=== PATIENT | female | born 1945 | race Caucasian/White ===

== ENCOUNTER → 2017-07-03 | Outpatient (CLI) | payer OTHER ==
[2017-07-03 15:54] LABS: Basophils # (auto) 0 uL; Hemoglobin 11.3 g/dL (12.2-16.2); Lymphocytes # (auto) 0.4 uL; Monocytes # (auto) 0.8 uL
[2017-07-03 15:56] LABS: Basophils % (auto) 0.8 % (0.0-2.0); Eosinophils # (auto) 0.1 uL; Eosinophils % (auto) 2.8 % (0.0-7.0); Hematocrit 33.4 % (36.0-46.0); Lymphocytes % (auto) 7.9 % (10.0-50.0); Mean Corpuscular Hemoglobin 34.7 pg (28.0-32.0); Mean Corpuscular Hgb Conc. 33.9 g/dL (32.0-36.0); Mean Corpuscular Volume 102.3 fL (80.0-100.0); Monocytes % (auto) 15.4 % (0.0-12.0); Neutrophils # (auto) 3.6 uL; Neutrophils % (auto) 73.1 % (37.0-80.0); Platelet Count (auto) 274 10^3/uL (140-450); Red Blood Cells 3.26 10^6/uL (4.0-5.20); Red Cell Distribution Width 13.7 % (11.8-14.3); White Blood Cell 4.9 10^3/uL (4.4-10.8)
[2017-07-03 16:15] LABS: Albumin 3.5 g/dL (3.4-5.0); BUN/Creatinine Ratio 15.2; Bilirubin, Total 0.2 mg/dL (0.2-1.0); Calcium 9.3 mg/dL (8.5-10.1); Potassium 3.6 mmol/L (3.5-5.1); Total Protein 7.5 g/dL (6.4-8.2)
== END | disposition home or self-care (01) ==
LOC: EDBD 15:18 → LAB 15:18
PROVIDERS: ATTEND Internal Medicine
DX: C56.9 Malignant neoplasm of unspecified ovary (principal)
CPT/HCPCS: 36415; 80053; 83615; 85025; 86304

== ENCOUNTER → 2017-09-11 | Outpatient (CLI) | payer OTHER ==
[2017-09-11 10:51] LABS: Basophils # (auto) 0 uL; Basophils % (auto) 0.7 % (0.0-2.0); Eosinophils # (auto) 0.1 uL; Eosinophils % (auto) 2.2 % (0.0-7.0); Hematocrit 32.2 % (36.0-46.0); Hemoglobin 10.7 g/dL (12.2-16.2); Lymphocytes # (auto) 0.3 uL; Lymphocytes % (auto) 8.6 % (10.0-50.0); Mean Corpuscular Hemoglobin 32.5 pg (28.0-32.0); Mean Corpuscular Hgb Conc. 33.2 g/dL (32.0-36.0); Mean Corpuscular Volume 97.8 fL (80.0-100.0); Monocytes # (auto) 0.7 uL; Monocytes % (auto) 17.8 % (0.0-12.0); Neutrophils # (auto) 2.7 uL; Neutrophils % (auto) 70.7 % (37.0-80.0); Platelet Count (auto) 232 10^3/uL (140-450); Red Blood Cells 3.29 10^6/uL (4.0-5.20); Red Cell Distribution Width 14.5 % (11.8-14.3); White Blood Cell 3.8 10^3/uL (4.4-10.8)
== END | disposition home or self-care (01) ==
LOC: LAB 10:04
PROVIDERS: ATTEND Internal Medicine
DX: C53.9 Malignant neoplasm of cervix uteri, unspecified (principal)
CPT/HCPCS: 36415; 83615; 85025

== ENCOUNTER → 2017-09-27 | Outpatient (CLI) | payer OTHER ==
[2017-09-27 14:14] LABS: Hematocrit 28.6 % (36.0-46.0); Hemoglobin 9.8 g/dL (12.2-16.2); Mean Corpuscular Hemoglobin 33.4 pg (28.0-32.0); Mean Corpuscular Hgb Conc. 34.1 g/dL (32.0-36.0); Platelet Count (auto) 197 10^3/uL (140-450); Red Blood Cells 2.92 10^6/uL (4.0-5.20); White Blood Cell 2.8 10^3/uL (4.4-10.8)
[2017-09-27 14:23] LABS: Basophils % (manual) 0 (0.0-2.0); Blast Cells 0; Metamyelocytes % 0; Myelocytes % 0; Promyelocytes % 0; Reactive Lymphocytes 0
[2017-09-27 14:52] LABS: Albumin 3.4 g/dL (3.4-5.0); BUN/Creatinine Ratio 17.9; Bilirubin, Total 0.2 mg/dL (0.2-1.0); Calcium 8.9 mg/dL (8.5-10.1); Potassium 3.7 mmol/L (3.5-5.1); Total Protein 7.4 g/dL (6.4-8.2)
[2017-09-27 14:54] LABS: Band Neutrophils % (manual) 1; Eosinophils % (manual) 2 (0-7); Lymphocytes % (manual) 11 (10.0-50.0); Monocytes % (manual) 32 (0-12)
== END | disposition home or self-care (01) ==
LOC: LAB 13:13
PROVIDERS: ATTEND Internal Medicine
DX: C53.9 Malignant neoplasm of cervix uteri, unspecified (principal)
CPT/HCPCS: 36415; 80053; 83615; 85007; 85027; 86304

== ENCOUNTER 2017-10-30 15:33 | Inpatient (IN) | payer OTHER ==
[~2017-10-30] VITALS: Ht 160 cm; Wt 77.0 kg
[2017-10-30] MEDS ORDERED: SODIUM CHLORIDE 0.9% 500 ML IVB ONE (16:06)
[2017-10-30] MEDS ORDERED: ONDANSETRON HCL 4 MG/2 ML VIAL IV ONE ×2 (16:15→22:15)
[2017-10-30 17:01] LABS: Basophils # (auto) 0 uL; Eosinophils # (auto) 0.1 uL; Lymphocytes # (auto) 0.4 uL
[2017-10-30 17:03] LABS: Basophils % (auto) 0.3 % (0.0-2.0); Eosinophils % (auto) 1.1 % (0.0-7.0); Hematocrit 29.5 % (36.0-46.0); Hemoglobin 9.8 g/dL (12.2-16.2); Lymphocytes % (auto) 4.8 % (10.0-50.0); Mean Corpuscular Hemoglobin 34.1 pg (28.0-32.0); Mean Corpuscular Hgb Conc. 33.1 g/dL (32.0-36.0); Mean Corpuscular Volume 102.9 fL (80.0-100.0); Monocytes # (auto) 1.1 uL; Monocytes % (auto) 13.6 % (0.0-12.0); Neutrophils # (auto) 6.4 uL; Neutrophils % (auto) 80.2 % (37.0-80.0); Nucleated Red Blood Cells % 0.1 %; Platelet Count (auto) 366 10^3/uL (140-450); Red Blood Cells 2.86 10^6/uL (4.0-5.20); Red Cell Distribution Width 18.6 % (11.8-14.3)
[2017-10-30 17:13] LABS: INR 0.94 (0.9-1.15); Partial Thromboplastin Time 23.8 sec (23.78-33.04); Prothrombin Time 10.1 sec (9.27-12.13)
[2017-10-30] MEDS ORDERED: cefTRIAXone 1GM/10ml IVPUSH 10 ML IV ONE (17:45)
[2017-10-30] MEDS ORDERED: metroNIDAZOLE 500MG/100ML 100 ML IV ONE (17:45)
[2017-10-30 17:46] LABS: Alanine Aminotransferase 18 U/L (13-56); Albumin 3.5 g/dL (3.4-5.0); Alkaline Phosphatase 58 U/L (45-117); Amylase 44 U/L (25-115); Anion Gap 9 (5-15); Aspartate Aminotransferase 19 U/L (15-37); BUN/Creatinine Ratio 16.3; Bilirubin, Total 0.3 mg/dL (0.2-1.0); Blood Urea Nitrogen 26 mg/dL (7-18); Calcium 9.6 mg/dL (8.5-10.1); Carbon Dioxide 23 mmol/L (21-32); Chloride 112 mmol/L (98-107); GFR African American 41 mL/min; GFR Non-African American 34 mL/min; Glucose 142 mg/dL (74-106); Lipase 93 U/L (73-393); Magnesium 2.6 mg/dL (1.6-2.6); Potassium 3.7 mmol/L (3.5-5.1); Sodium 144 mmol/L (136-145); Total Protein 7.8 g/dL (6.4-8.2)
[2017-10-30] MEDS ORDERED: cloNIDine HCL 0.1 MG TAB PO ONE (18:00)
[2017-10-30 18:40] LABS: Urine Bacteria FEW /hpf (None Seen); Urine Blood TRACE /uL (Negative); Urine Specific Gravity 1.011 (1.001-1.035); Urine WBC 21 /hpf (0 - 5)
[2017-10-30] MEDS ORDERED: MORPHINE SULFATE 4 MG/ML SYR/VIAL IV ONE (22:15)
[2017-10-30] MEDS ORDERED: ONDANSETRON HCL 4 MG/2 ML VIAL IV PRN (23:45)
[2017-10-30] MEDS ORDERED: DEXTROSE (50%) 50ML SYRG IV PRN (23:45)
[2017-10-30] MEDS ORDERED: ACETAMINOPHEN 500 MG TAB PO PRN (23:45)
[2017-10-30] MEDS ORDERED: METOPROLOL TARTRATE 50 MG TAB PO ONE (23:45)
[2017-10-30] MEDS ORDERED: MORPHINE SULFATE 4 MG/ML SYR/VIAL IV PRN (23:45)
[2017-10-31] MEDS: SODIUM CHLORIDE 0.9% 1,000 ML IV SCH ×2 (00:53→18:21)
[2017-10-31] MEDS: metroNIDAZOLE 500MG/100ML 100 ML IV SCH ×3 (01:56→18:08)
[2017-10-31 02:00] VITALS: BP 177/84
[2017-10-31 02:19] VITALS: BP 198/60
[2017-10-31] MEDS ORDERED: hydrALAZINE HCL 20 MG/ML VL IV ONE (02:30)
[2017-10-31 05:00] VITALS: BP 184/72
[2017-10-31] MEDS: InsuLIN REG 1unit/0.01ml Soln (100units/ml) SC SCH ×4 (06:41→21:56)
[2017-10-31] MEDS: ACCU-CHEK COMFORT CURVE STRIP VI SCH ×4 (06:41→22:04)
[2017-10-31] MEDS: cloNIDine HCL 0.1 MG TAB PO SCH ×2 (06:42→22:00)
[2017-10-31 06:43] LABS: Basophils # (auto) 0 uL; Eosinophils # (auto) 0 uL; Eosinophils % (auto) 0.3 % (0.0-7.0); Hemoglobin 8.8 g/dL (12.2-16.2); Lymphocytes # (auto) 0.2 uL; Lymphocytes % (auto) 1.5 % (10.0-50.0); Mean Corpuscular Hgb Conc. 32.5 g/dL (32.0-36.0); Monocytes # (auto) 1.1 uL; Neutrophils # (auto) 10.5 uL; Platelet Count (auto) 310 10^3/uL (140-450); White Blood Cell 11.9 10^3/uL (4.4-10.8)
[2017-10-31 06:45] LABS: Basophils % (auto) 0.3 % (0.0-2.0); Hematocrit 27.2 % (36.0-46.0); Mean Corpuscular Hemoglobin 33.6 pg (28.0-32.0); Mean Corpuscular Volume 103.4 fL (80.0-100.0); Monocytes % (auto) 9.5 % (0.0-12.0); Neutrophils % (auto) 88.4 % (37.0-80.0); Red Blood Cells 2.63 10^6/uL (4.0-5.20); Red Cell Distribution Width 18.7 % (11.8-14.3)
[2017-10-31 07:00] LABS: BUN/Creatinine Ratio 15.2; Calcium 8.6 mg/dL (8.5-10.1); Potassium 3.5 mmol/L (3.5-5.1)
[2017-10-31 09:00] VITALS: BP 134/72
[2017-10-31] MEDS ORDERED: METOPROLOL TARTRATE 50 MG TAB PO SCH (10:00)
[2017-10-31] MEDS ORDERED: LEVO50TA7 PO (12:06)
[2017-10-31] MEDS ORDERED: FURO20TA3 PO (12:07)
[2017-10-31] MEDS ORDERED: FENO1TAB42 PO (12:08)
[2017-10-31] MEDS ORDERED: PANT40TA2 PO (12:08)
[2017-10-31] MEDS ORDERED: CLON0.1T PO (12:09)
[2017-10-31] MEDS ORDERED: METO25TA5 PO (12:10)
[2017-10-31] MEDS ORDERED: PEN400T PO (12:10)
[2017-10-31] MEDS ORDERED: NIFE90TA30 PO (12:11)
[2017-10-31] MEDS ORDERED: TRAV0.00 EACHEYE (12:12)
[2017-10-31] MEDS ORDERED: INSU300I SC (12:13)
[2017-10-31] MEDS ORDERED: HYDR-4683 PO (12:14)
[2017-10-31] MEDS ORDERED: FERR1TAB5 PO (12:15)
[2017-10-31] MEDS ORDERED: CALCTAB25 PO (12:17)
[2017-10-31] MEDS ORDERED: LOPE2CAP14 PO (12:18)
[2017-10-31] MEDS ORDERED: POLY33504 PO (12:18)
[2017-10-31 12:26] LABS: % Iron Saturation 5.6 % (15-50)
[2017-10-31 12:36] LABS: Folate (Folic Acid) 10.22 ng/mL (5.38-24)
[2017-10-31] MEDS ORDERED: CYANOCOBALAMIN (B-12) 1000 MCG/1 ML VIAL SUBCUT ONE (13:00)
[2017-10-31] MEDS ORDERED: SODIUM FERR GLUC 62.5MG/5ML 125 MG in SODIUM CHL 0.9% 100 ML IV ONE (13:00)
[2017-10-31 13:06] VITALS: BP 119/63
[2017-10-31] MEDS: CALCIUM W/VIT D (600MG/400IU) TAB PO SCH (13:56)
[2017-10-31 17:00] VITALS: BP 126/70
[2017-10-31] MEDS: cefTRIAXone 1GM/10ml IVPUSH 10 ML IV SCH (18:08)
[2017-10-31] MEDS: PENTOXIFYLLINE 400 MG ER TAB PO SCH (18:10)
[2017-10-31] MEDS: NIFEdipine ER 30 MG TAB PO SCH (18:10)
[2017-10-31] MEDS: METOPROLOL TARTRATE 50 MG TAB PO SCH (22:00)
[2017-11-01] MEDS: metroNIDAZOLE 500MG/100ML 100 ML IV SCH ×3 (01:43→17:55)
[2017-11-01 05:37] VITALS: BP 126/60
[2017-11-01] MEDS: LEVOTHYROXINE SODIUM 25 MCG TAB PO SCH (06:32)
[2017-11-01] MEDS: InsuLIN REG 1unit/0.01ml Soln (100units/ml) SC SCH ×4 (06:33→21:59)
[2017-11-01] MEDS: ACCU-CHEK COMFORT CURVE STRIP VI SCH ×4 (06:33→22:01)
[2017-11-01 06:47] LABS: BUN/Creatinine Ratio 13.7; Calcium 8.2 mg/dL (8.5-10.1); Potassium 3.4 mmol/L (3.5-5.1)
[2017-11-01] MEDS: PENTOXIFYLLINE 400 MG ER TAB PO SCH ×2 (08:47→17:56)
[2017-11-01 09:00] VITALS: BP 140/60
[2017-11-01] MEDS: CYANOCOBALAMIN (B-12) 1000 MCG/1 ML VIAL SUBCUT SCH (10:15)
[2017-11-01] MEDS: cloNIDine HCL 0.1 MG TAB PO SCH ×2 (10:16→21:53)
[2017-11-01] MEDS: METOPROLOL TARTRATE 50 MG TAB PO SCH ×2 (10:17→22:01)
[2017-11-01] MEDS: D5W 5% 1,000 ML IV ONE ×2 (11:00→11:23)
[2017-11-01] MEDS: CALCIUM W/VIT D (600MG/400IU) TAB PO SCH (11:52)
[2017-11-01] MEDS: SODIUM FERR GLUC 62.5MG/5ML 125 MG in SODIUM CHL 0.9% 100 ML IV SCH (12:26)
[2017-11-01 13:00] VITALS: BP 139/79
[2017-11-01] MEDS: HYDROcodone-ACET 5/325MG TAB PO PRN (15:04)
[2017-11-01 17:00] VITALS: BP 137/63
[2017-11-01] MEDS: cefTRIAXone 1GM/10ml IVPUSH 10 ML IV SCH (17:55)
[2017-11-01] MEDS: NIFEdipine ER 30 MG TAB PO SCH (17:56)
[2017-11-01 21:53] VITALS: BP 182/55
[2017-11-02] MEDS: metroNIDAZOLE 500MG/100ML 100 ML IV SCH (02:03)
[2017-11-02] MEDS: HYDROcodone-ACET 5/325MG TAB PO PRN (02:26)
[2017-11-02 05:18] VITALS: BP 139/61
[2017-11-02] MEDS: InsuLIN REG 1unit/0.01ml Soln (100units/ml) SC SCH ×2 (06:19→11:30)
[2017-11-02] MEDS: ACCU-CHEK COMFORT CURVE STRIP VI SCH ×2 (06:20→11:30)
[2017-11-02] MEDS: LEVOTHYROXINE SODIUM 25 MCG TAB PO SCH (06:20)
[2017-11-02 06:33] LABS: Basophils # (auto) 0 uL; Eosinophils # (auto) 0.2 uL; Lymphocytes # (auto) 0.3 uL; Mean Corpuscular Volume 103.7 fL (80.0-100.0); Monocytes # (auto) 0.9 uL; Neutrophils # (auto) 4.1 uL
[2017-11-02 06:35] LABS: Basophils % (auto) 0.5 % (0.0-2.0); Eosinophils % (auto) 3.3 % (0.0-7.0); Hematocrit 24.1 % (36.0-46.0); Mean Corpuscular Hemoglobin 34.4 pg (28.0-32.0); Mean Corpuscular Hgb Conc. 33.2 g/dL (32.0-36.0); Neutrophils % (auto) 74.2 % (37.0-80.0); Platelet Count (auto) 296 10^3/uL (140-450); Red Blood Cells 2.33 10^6/uL (4.0-5.20); White Blood Cell 5.5 10^3/uL (4.4-10.8)
[2017-11-02 06:44] LABS: BUN/Creatinine Ratio 13.6; Calcium 8.8 mg/dL (8.5-10.1); Potassium 3.5 mmol/L (3.5-5.1)
[2017-11-02 08:00] VITALS: BP 151/79
[2017-11-02] MEDS: PENTOXIFYLLINE 400 MG ER TAB PO SCH (08:21)
[2017-11-02] MEDS ORDERED: FER325T PO (09:53)
[2017-11-02] MEDS ORDERED: METR500T14 PO (09:53)
[2017-11-02] MEDS ORDERED: CYAN1TAB14 PO (09:53)
[2017-11-02] MEDS ORDERED: CIPR-173 PO (09:53)
[2017-11-02] MEDS ORDERED: CIPROFLOXACIN HCL 500 MG TAB PO ONE (10:00)
[2017-11-02] MEDS ORDERED: metroNIDAZOLE 500 MG TAB PO ONE (10:00)
[2017-11-02] MEDS: cloNIDine HCL 0.1 MG TAB PO SCH (10:35)
[2017-11-02] MEDS: CYANOCOBALAMIN (B-12) 1000 MCG/1 ML VIAL SUBCUT SCH (10:35)
[2017-11-02] MEDS: METOPROLOL TARTRATE 50 MG TAB PO SCH (10:38)
[2017-11-02] MEDS: SODIUM FERR GLUC 62.5MG/5ML 125 MG in SODIUM CHL 0.9% 100 ML IV SCH (12:00)
[2017-11-02] MEDS: CALCIUM W/VIT D (600MG/400IU) TAB PO SCH (12:00)
== END 2017-11-02 12:21 | disposition home or self-care (01) | DRG 690 ==
LOC: EDBD 15:33 → ER 15:38 → OVERFLOW 15:39 → CENTRAL 10-31 01:08
PROVIDERS: ADMIT Nurse Practitioner Family; ATTEND Internal Medicine
DX: N13.6 Pyonephrosis (principal); K57.32 Diverticulitis of large intestine without perforation or abscess without bleeding; E87.0 Hyperosmolality and hypernatremia; E11.42 Type 2 diabetes mellitus with diabetic polyneuropathy; N18.3 Chronic kidney disease, stage 3 (moderate); D64.9 Anemia, unspecified; B96.1 Klebsiella pneumoniae [K. pneumoniae] as the cause of diseases classified elsewhere; E11.22 Type 2 diabetes mellitus with diabetic chronic kidney disease; E53.8 Deficiency of other specified B group vitamins; E78.5 Hyperlipidemia, unspecified; I12.9 Hypertensive chronic kidney disease with stage 1 through stage 4 chronic kidney disease, or unspecified chronic kidney disease; Z82.49 Family history of ischemic heart disease and other diseases of the circulatory system; Z85.41 Personal history of malignant neoplasm of cervix uteri; Z92.21 Personal history of antineoplastic chemotherapy; Z92.3 Personal history of irradiation; Z88.8 Allergy status to other drugs, medicaments and biological substances; Z86.73 Personal history of transient ischemic attack (TIA), and cerebral infarction without residual deficits
CPT/HCPCS: 36415; 71045; 74176; 80048; 80053; 81001; 82150; 82607; 82746; 82962; 83036; 83540; 83550; 83690; 83735; 84484; 85025; 85610; 85730; 87086; 87088; 87186; 93005; 94761; 96361; 96365; 96375; J0696; J1815; J2405; J3490

== ENCOUNTER → 2017-11-15 | Outpatient (CLI) | payer OTHER ==
[~2017-11-15] MED LIST: CALCTAB25 PO; CIPR-173 PO; CLON0.1T PO; CYAN1TAB14 PO; FENO1TAB42 PO; FER325T PO; HYDR-4683 PO; INSU300I SC; LEVO50TA7 PO; LOPE2CAP14 PO; METO25TA5 PO; METR500T14 PO; NIFE90TA30 PO; PANT40TA2 PO; PEN400T PO; POLY33504 PO; TRAV0.00 EACHEYE
[2017-11-15 13:01] LABS: Basophils # (auto) 0 uL; Eosinophils # (auto) 0 uL; Hemoglobin 8.8 g/dL (12.2-16.2); Monocytes % (auto) 14.7 % (0.0-12.0); Potassium 3.4 mmol/L (3.5-5.1); Red Blood Cells 2.52 10^6/uL (4.0-5.20)
[2017-11-15 13:03] LABS: Basophils % (auto) 0.4 % (0.0-2.0); Eosinophils % (auto) 0.4 % (0.0-7.0); Hematocrit 27.1 % (36.0-46.0); Lymphocytes # (auto) 0.2 uL; Lymphocytes % (auto) 3.1 % (10.0-50.0); Mean Corpuscular Hemoglobin 34.9 pg (28.0-32.0); Mean Corpuscular Hgb Conc. 32.4 g/dL (32.0-36.0); Mean Corpuscular Volume 107.5 fL (80.0-100.0); Neutrophils # (auto) 5.7 uL; Neutrophils % (auto) 81.4 % (37.0-80.0); Platelet Count (auto) 259 10^3/uL (140-450); Red Cell Distribution Width 16.8 % (11.8-14.3)
[2017-11-15 13:14] LABS: Albumin 3.1 g/dL (3.4-5.0); BUN/Creatinine Ratio 15.2; Bilirubin, Total 0.2 mg/dL (0.2-1.0); Calcium 8.5 mg/dL (8.5-10.1); Total Protein 6.7 g/dL (6.4-8.2)
== END | disposition home or self-care (01) ==
LOC: LAB 10:35
PROVIDERS: ATTEND Internal Medicine
DX: C53.0 Malignant neoplasm of endocervix (principal)
CPT/HCPCS: 36415; 80053; 85025; 86304

== ENCOUNTER → 2017-12-24 | Outpatient (CLI) | payer OTHER ==
[2017-12-24 11:04] LABS: Basophils # (auto) 0 uL; Eosinophils # (auto) 0 uL; Hemoglobin 7.6 g/dL (12.2-16.2); Lymphocytes # (auto) 0.3 uL; Neutrophils # (auto) 5.6 uL; Nucleated Red Blood Cells % 0.1 %
[2017-12-24 11:07] LABS: Basophils % (auto) 0.4 % (0.0-2.0); Eosinophils % (auto) 0.5 % (0.0-7.0); Hematocrit 23.6 % (36.0-46.0); Lymphocytes % (auto) 4.4 % (10.0-50.0); Mean Corpuscular Hemoglobin 32.2 pg (28.0-32.0); Mean Corpuscular Hgb Conc. 32.3 g/dL (32.0-36.0); Mean Corpuscular Volume 99.6 fL (80.0-100.0); Monocytes # (auto) 0.7 uL; Monocytes % (auto) 10.5 % (0.0-12.0); Neutrophils % (auto) 84.2 % (37.0-80.0); Platelet Count (auto) 344 10^3/uL (140-450); Red Blood Cells 2.37 10^6/uL (4.0-5.20); Red Cell Distribution Width 15.1 % (11.8-14.3); White Blood Cell 6.7 10^3/uL (4.4-10.8)
[2017-12-24 11:43] LABS: Albumin 3.4 g/dL (3.4-5.0); Calcium 9.2 mg/dL (8.5-10.1); Potassium 4.1 mmol/L (3.5-5.1)
[2017-12-24 11:47] LABS: BUN/Creatinine Ratio 16.5; Bilirubin, Total 0.1 mg/dL (0.2-1.0); Total Protein 7.1 g/dL (6.4-8.2)
== END | disposition home or self-care (01) ==
LOC: LAB 10:11
PROVIDERS: ATTEND Internal Medicine
DX: C53.9 Malignant neoplasm of cervix uteri, unspecified (principal); I12.9 Hypertensive chronic kidney disease with stage 1 through stage 4 chronic kidney disease, or unspecified chronic kidney disease; E11.22 Type 2 diabetes mellitus with diabetic chronic kidney disease; N18.3 Chronic kidney disease, stage 3 (moderate)
CPT/HCPCS: 36415; 80053; 83615; 85025; 86304

== ENCOUNTER 2018-02-15 14:36 | Inpatient (IN) | payer OTHER | END 2018-02-22 16:07 | disposition home or self-care (01) | LOC: WEST WING 02-19 11:11 → TELE-WESTW 02-16 19:00 → ER 14:36 → TELE 16:11 | PROC: 0DB98ZX Excision of Duodenum, Via Natural or Artificial Opening Endoscopic, Diagnostic (ICD-10-PCS; principal; 2018-02-21 10:06) | PROC: 0DBN8ZZ Excision of Sigmoid Colon, Via Natural or Artificial Opening Endoscopic (ICD-10-PCS; 2018-02-21 10:06) | DX: K29.80 Duodenitis without bleeding (principal); N39.0 Urinary tract infection, site not specified; E46 Unspecified protein-calorie malnutrition; K57.30 Diverticulosis of large intestine without perforation or abscess without bleeding; K29.70 Gastritis, unspecified, without bleeding; D50.9 Iron deficiency anemia, unspecified; E11.65 Type 2 diabetes mellitus with hyperglycemia; Z85.41 Personal history of malignant neoplasm of cervix uteri; N18.9 Chronic kidney disease, unspecified; E78.5 Hyperlipidemia, unspecified; E03.9 Hypothyroidism, unspecified; C53.9 Malignant neoplasm of cervix uteri, unspecified; M19.90 Unspecified osteoarthritis, unspecified site ==

== ENCOUNTER → 2018-03-14 | Outpatient (CLI) | payer OTHER, MEDICARE ==
[~2018-03-14] MED LIST changes: -CIPR-173 PO; -CLON0.1T PO; +FOLI1TAB6 PO; -HYDR-4683 PO; -INSU300I SC; +LEV100T PO; -LOPE2CAP14 PO; +MET50T PO; -METR500T14 PO; -NIFE90TA30 PO; +PANT-36 PO; -PEN400T PO; -POLY33504 PO
[2018-03-14 13:13] LABS: Basophils # (auto) 0 uL; Basophils % (auto) 0.6 % (0.0-2.0); Eosinophils # (auto) 0.2 uL; Eosinophils % (auto) 3.3 % (0.0-7.0); Hematocrit 31.3 % (36.0-46.0); Hemoglobin 10.1 g/dL (12.2-16.2); Lymphocytes # (auto) 0.3 uL; Lymphocytes % (auto) 4.3 % (10.0-50.0); Mean Corpuscular Hemoglobin 28.5 pg (28.0-32.0); Mean Corpuscular Hgb Conc. 32.1 g/dL (32.0-36.0); Mean Corpuscular Volume 88.6 fL (80.0-100.0); Monocytes # (auto) 0.9 uL; Monocytes % (auto) 14.4 % (0.0-12.0); Neutrophils # (auto) 4.8 uL; Neutrophils % (auto) 77.4 % (37.0-80.0); Platelet Count (auto) 372 10^3/uL (140-450); Red Blood Cells 3.54 10^6/uL (4.0-5.20); Red Cell Distribution Width 19.7 % (11.8-14.3); White Blood Cell 6.2 10^3/uL (4.4-10.8)
[2018-03-14 14:31] LABS: Albumin 3.2 g/dL (3.4-5.0); Calcium 9.5 mg/dL (8.5-10.1)
[2018-03-14 14:34] LABS: BUN/Creatinine Ratio 19.3; Bilirubin, Total 0.2 mg/dL (0.2-1.0); Total Protein 7.6 g/dL (6.4-8.2)
== END | disposition home or self-care (01) ==
LOC: LAB 12:03
PROVIDERS: ATTEND Internal Medicine
DX: C53.0 Malignant neoplasm of endocervix (principal)
CPT/HCPCS: 36415; 80053; 83615; 85025

== ENCOUNTER → 2018-04-04 | Outpatient (CLI) | payer OTHER, MEDICARE ==
[2018-04-04 12:37] LABS: Hematocrit 33.1 % (36.0-46.0); Hemoglobin 10.3 g/dL (12.2-16.2); Mean Corpuscular Hemoglobin 28.2 pg (28.0-32.0); Mean Corpuscular Hgb Conc. 31.1 g/dL (32.0-36.0); Mean Corpuscular Volume 90.5 fL (80.0-100.0); Platelet Count (auto) 306 10^3/uL (140-450); Red Blood Cells 3.66 10^6/uL (4.0-5.20); White Blood Cell 7.4 10^3/uL (4.4-10.8)
[2018-04-04 12:39] LABS: Band Neutrophils % (manual) 0; Basophils % (manual) 0 (0.0-2.0); Blast Cells 0; Metamyelocytes % 0; Myelocytes % 0; Promyelocytes % 0; Reactive Lymphocytes 0
[2018-04-04 13:16] LABS: Eosinophils % (manual) 1 (0-7); Lymphocytes % (manual) 8 (10.0-50.0); Monocytes % (manual) 10 (0-12)
== END | disposition home or self-care (01) ==
LOC: LAB 12:09
PROVIDERS: ATTEND Internal Medicine
DX: C53.0 Malignant neoplasm of endocervix (principal)
CPT/HCPCS: 36415; 85007; 85027

== ENCOUNTER → 2018-07-15 | Outpatient (CLI) | payer OTHER, MEDICARE ==
[2018-07-15 11:07] LABS: Basophils # (auto) 0 uL; Basophils % (auto) 0.3 % (0.0-2.0); Eosinophils # (auto) 0.1 uL; Eosinophils % (auto) 0.8 % (0.0-7.0); Hematocrit 34.2 % (36.0-46.0); Lymphocytes # (auto) 0.4 uL; Lymphocytes % (auto) 6.5 % (10.0-50.0); Mean Corpuscular Hemoglobin 29.1 pg (28.0-32.0); Mean Corpuscular Hgb Conc. 32.1 g/dL (32.0-36.0); Mean Corpuscular Volume 90.7 fL (80.0-100.0); Monocytes # (auto) 0.8 uL; Monocytes % (auto) 11.5 % (0.0-12.0); Neutrophils # (auto) 5.5 uL; Neutrophils % (auto) 80.9 % (37.0-80.0); Nucleated Red Blood Cells % 0.1 %; Platelet Count (auto) 312 10^3/uL (140-450); Red Blood Cells 3.77 10^6/uL (4.0-5.20); Red Cell Distribution Width 15.9 % (11.8-14.3); White Blood Cell 6.8 10^3/uL (4.4-10.8)
[2018-07-15 11:35] LABS: Calcium 9.2 mg/dL (8.5-10.1); Potassium 3.6 mmol/L (3.5-5.1)
[2018-07-15 11:41] LABS: Albumin 3.3 g/dL (3.4-5.0); Bilirubin, Total 0.2 mg/dL (0.2-1.0); Total Protein 7.3 g/dL (6.4-8.2)
== END | disposition home or self-care (01) ==
LOC: LAB 10:34
PROVIDERS: ATTEND Internal Medicine
DX: C53.0 Malignant neoplasm of endocervix (principal)
CPT/HCPCS: 36415; 80053; 83615; 85025; 86304

== ENCOUNTER → 2018-10-15 | Outpatient (CLI) | payer OTHER, MEDICARE ==
[2018-10-15 15:48] LABS: Basophils # (auto) 0.1 uL; Basophils % (auto) 1.1 % (0.0-2.0); Eosinophils # (auto) 0.2 uL; Eosinophils % (auto) 3.5 % (0.0-7.0); Hematocrit 37.5 % (36.0-46.0); Lymphocytes # (auto) 0.4 uL; Lymphocytes % (auto) 9.2 % (10.0-50.0); Mean Corpuscular Hemoglobin 29.3 pg (28.0-32.0); Mean Corpuscular Hgb Conc. 32.1 g/dL (32.0-36.0); Mean Corpuscular Volume 91.2 fL (80.0-100.0); Monocytes # (auto) 0.7 uL; Monocytes % (auto) 14.2 % (0.0-12.0); Neutrophils # (auto) 3.4 uL; Platelet Count (auto) 265 10^3/uL (140-450); Red Blood Cells 4.11 10^6/uL (4.0-5.20); Red Cell Distribution Width 17.3 % (11.8-14.3); White Blood Cell 4.7 10^3/uL (4.4-10.8)
[2018-10-15 16:10] LABS: Albumin 3.4 g/dL (3.4-5.0); BUN/Creatinine Ratio 21.6; Calcium 9.4 mg/dL (8.5-10.1); Potassium 4.1 mmol/L (3.5-5.1)
[2018-10-15 16:12] LABS: Bilirubin, Total 0.3 mg/dL (0.2-1.0); Total Protein 7.3 g/dL (6.4-8.2)
== END | disposition home or self-care (01) ==
LOC: LAB 15:33
PROVIDERS: ATTEND Internal Medicine
DX: C53.9 Malignant neoplasm of cervix uteri, unspecified (principal)
CPT/HCPCS: 36415; 80053; 83615; 85025; 86304

== ENCOUNTER 2019-12-20 02:45 | Emergency (ER) | payer OTHER ==
[~2019-12-20] VITALS: Ht 160 cm; Wt 68.0 kg
[~2019-12-20 02:45] MED LIST changes: +CLOB0.055 TOP; +CLON0.1T PO; +DOXY-346 PO; +FENO145T27 PO; -FENO1TAB42 PO; +INSLANTI SC; +NIFE90TA49 PO; +OXYB5TAB61 PO; +PEN400T PO
[2019-12-20] MEDS ORDERED: fentaNYL CITRATE 100 MCG/2 ML VL IV ONE ×2 (05:00→06:30)
[2019-12-20] MEDS ORDERED: KETOROLAC TROMETH 30 MG/ML 1ML VIAL IV ONE (05:00)
[2019-12-20 07:14] VITALS: BP 144/72
== END 2019-12-20 07:41 | disposition home or self-care (01) ==
LOC: EDBD 02:45 → ER 02:45
DX: S63.501A Unspecified sprain of right wrist, initial encounter (principal); L03.115 Cellulitis of right lower limb; M35.2 Behcet's disease; M25.452 Effusion, left hip; M25.451 Effusion, right hip; E11.9 Type 2 diabetes mellitus without complications; I10 Essential (primary) hypertension; Z90.49 Acquired absence of other specified parts of digestive tract; X58.XXXA Exposure to other specified factors, initial encounter; Y93.89 Activity, other specified; Y92.89 Other specified places as the place of occurrence of the external cause; Y99.8 Other external cause status
CPT/HCPCS: 72192; 73100; 96374; 96375; 96376; 99284; J1885; J3010